=== PATIENT | male | born 1995 | race Two or more races ===

== ENCOUNTER 2019-03-21 17:31 | Emergency (ER) | payer SELFPAY ==
[~2019-03-21] VITALS: Ht 172.7 cm; Wt 83.9 kg
[2019-03-21] MEDS ORDERED: TETANUS-DIPTH-ACEL PERTUSSIS 0.5ML SYRG IM ONE (18:00)
[2019-03-21] MEDS ORDERED: cefTRIAXone W LIDOCAINE 1 GM IM IM ONE (18:00)
[2019-03-21] MEDS ORDERED: cefTRIAXone SOD 1,000 MG VL ONE (18:09)
[2019-03-21] MEDS ORDERED: NEOMYCIN-BACITRACIN-POLYM UNITDOSE PKG TOP OINT TOP ONE ×2 (18:24→18:30)
[2019-03-21 18:41] VITALS: BP 112/75
== END 2019-03-21 18:42 | disposition home or self-care (01) ==
LOC: ER 17:31
DX: S91.312A Laceration without foreign body, left foot, initial encounter (principal); F17.210 Nicotine dependence, cigarettes, uncomplicated; W22.8XXA Striking against or struck by other objects, initial encounter; Y93.89 Activity, other specified; Y99.8 Other external cause status; Y92.89 Other specified places as the place of occurrence of the external cause
CPT/HCPCS: 12002; 90471; 90715; 96372; 99283; J0696

== ENCOUNTER 2019-03-23 13:07 | Emergency (ER) | payer OTHER ==
[~2019-03-23] VITALS: Ht 172.7 cm; Wt 53.8 kg
[2019-03-23 14:35] VITALS: BP 114/73
== END 2019-03-23 17:23 | disposition left against medical advice (07) ==
LOC: ER 13:07
DX: S91.302D Unspecified open wound, left foot, subsequent encounter (principal); Z53.21 Procedure and treatment not carried out due to patient leaving prior to being seen by health care provider; X58.XXXD Exposure to other specified factors, subsequent encounter